=== PATIENT | female | born 1985 | race Caucasian/White ===

== ENCOUNTER 2019-01-01 11:27 | Emergency (ER) | payer OTHER ==
[~2019-01-01] VITALS: Ht 157.5 cm; Wt 73.5 kg
[2019-01-01 12:02] VITALS: BP_SYST 112
[2019-01-01 15:10] VITALS: BP_SYST 122
== END 2019-01-01 15:10 | disposition home or self-care (01) ==
LOC: SED 11:27
DX: S63.91XA Sprain of unspecified part of right wrist and hand, initial encounter (principal); W01.0XXA Fall on same level from slipping, tripping and stumbling without subsequent striking against object, initial encounter; Y93.89 Activity, other specified; Y92.69 Other specified industrial and construction area as the place of occurrence of the external cause; Y99.8 Other external cause status
CPT/HCPCS: 81025; 99283